=== PATIENT | male | born 1980 | race Caucasian/White ===

== ENCOUNTER 2016-06-10 10:56 | Emergency (ER) | payer OTHER ==
[~2016-06-10] VITALS: Ht 198.1 cm; Wt 102.0 kg
[~2016-06-10 10:56] MED LIST: LIDO5DIS35 TD; NAPR550 PO; Z.0.NO CURRENT MEDS
[2016-06-10 10:58] VITALS: BP 130/74; PULSE 96; RESP 12; TEMP 98; O2SAT 96
--- NOTE | 2016-06-10 11:39 | PD ---
HPI Chief Complaint: Back/ Neck Pain or Injury Time Seen by Provider: 11:38 Travel History International Travel<30 days: No Contact w/Intl Traveler<30days: No Traveled to known affect area: No History of Present Illness HPI 35-year-old male with a history of hypertension and chronic back pain presents to the emergency department for evaluation of back pain. Patient states that he had a fracture of his L3 and L4 vertebrae over 20 years ago that he had to have surgery to repair. States that since then he has had chronic back pain. States that yesterday at work he "tweaked" his back and has had spasms in his mid and lower back. States that he is prescribed Percocet by his pain management physician but that his pills have been stolen for the past 3 months at work and he has not been taking anything for his pain. He denies any new traumatic injury to his back. Denies any fever, chills, nausea, vomiting, numbness or tingling, weakness, saddle anesthesia, bowel or bladder incontinence. No other complaints. PFSH Past Medical History Hypertension: Yes Past Surgical History Tonsillectomy: Yes Other Surgery: Yes (BACK SURG L5 S1 DISKECTOMY) Social History Alcohol Use: Yes (occasional to rare use of alcohol) Tobacco Use: Yes (one pack per day) Substance Use: No Allergies-Medications (Allergen,Severity, Reaction): Coded Allergies: No Known Allergies (Verified , 06/10/16) Reported Meds & Prescriptions Reported Meds & Active Scripts Active Anaprox Ds (Naproxen Sodium) 550 Mg Tab 550 Mg PO BID Lidoderm Patch (Lidocaine) 5 % Dis 1 Patch TD DAILY Reported No Current Meds (Miscellaneous Medication) Misc Review of Systems Except as stated in HPI: all other systems reviewed are Neg Physical Exam Narrative GENERAL: Well-nourished and well-developed pleasant patient in no acute distress who is nontoxic appearing. SKIN: Warm and dry. HEAD: Normocephalic and atraumatic. EYES: No injection, drainage, or hyphema noted. PERRLA. EOMI. ENT: No nasal drainage noted. Oropharynx is clear. NECK: Supple and the trachea is midline. CARDIOVASCULAR: Regular rate and rhythm. RESPIRATORY: Breath sounds are equal bilaterally with no accessory muscle use, wheezing, rhonchi, or crackles. GASTROINTESTINAL: Abdomen is soft, non-tender, and nondistended. MUSCULOSKELETAL: No obvious deformities, swelling, cyanosis, or ecchymosis is present throughout the upper and lower extremities. Patient has full range of motion without any signs of neurovascular compromise. Bilateral SLR positive. Trach 5/5 upper and lower extremities equal bilaterally. BACK: Nontender without any obvious deformities, bony point tenderness, or crepitus noted throughout the thoracic and lumbar vertebrae. NEUROLOGICAL: Awake, alert, and oriented. Normal speech and gait. Cranial nerves are grossly intact. Data Data Last Documented VS Vital Signs Date Time Temp Pulse Resp B/P Pulse Ox O2 Delivery O2 Flow Rate FiO2 06/10/16 10:58 98.0 96 12 130/74 96 Room Air Orders Ketorolac Inj (Toradol Inj) (06/10/16 11:45) Orphenadrine Inj (Norflex Inj) (06/10/16 11:45) [facility] Medical Decision Making Medical Screen Exam Complete: Yes Emergency Medical Condition: Yes Differential Diagnosis Acute on chronic back pain versus muscle strain versus muscle spasm versus discogenic pain Narrative Course 35-year-old male presents to the emergency department for evaluation of back pain. Patient is afebrile, vital signs are stable. Patient has a history of chronic back pain and is prescribed Percocet by his pain management physician but is claiming that they have been stolen. I did look the patient up on [employer] prescription monitoring program which confirms he received a 30 day supply of oxycodone and [id number] milligrams tablets 05/28/16. THE patient Toradol 60 mg IM and Norflex 60 mg IM here in the emergency department. He can follow-up as an outpatient with his pain management physician. Diagnosis Primary Impression: Acute exacerbation of chronic low back pain Referrals: Primary Care Physician Patient Instructions: Back Pain (ED), General Instructions Additional Instructions: Follow-up with your Primary Care Physician. Return to the ED for any acute worsening of symptoms. Med/Other Pt SpecificInfo: No Change to Meds Disposition: 01 DISCHARGE HOME Condition: Stable Brittnee Sarkar Jun 10, 2016 11:39
[2016-06-10] MEDS ORDERED: ORPHENADRINE INJ 60 MG/2 ML AMP IM ONE (11:45)
[2016-06-10] MEDS ORDERED: KETOROLAC TROMETHAMINE 60 MG/2 ML (IM) VIAL IM ONE (11:45)
== END 2016-06-10 11:53 | disposition home or self-care (01) ==
LOC: NEPB 10:56
DX: M54.5 Low back pain (principal); G89.29 Other chronic pain; I10 Essential (primary) hypertension; M62.830 Muscle spasm of back; F17.210 Nicotine dependence, cigarettes, uncomplicated
CPT/HCPCS: 96372; 99283; J1885; J2360

== ENCOUNTER 2016-07-14 11:41 | Emergency (ER) | payer OTHER ==
[~2016-07-14] VITALS: Ht 198.1 cm; Wt 100.0 kg
[2016-07-14 11:43] VITALS: BP 132/81; PULSE 91; RESP 12; TEMP 98.1; O2SAT 95
== END 2016-07-14 15:30 | disposition left against medical advice (07) ==
LOC: NETRI 11:41
DX: R05 Cough (principal)
CPT/HCPCS: 99281

== ENCOUNTER 2017-01-27 10:12 | Emergency (ER) | payer OTHER ==
[~2017-01-27] VITALS: Ht 198.1 cm; Wt 100.0 kg
[2017-01-27] MEDS ORDERED: METH500T3 PO (10:17)
[2017-01-27] MEDS ORDERED: HYDR-3583 PO (10:17)
[2017-01-27 10:22] VITALS: BP 146/74; PULSE 80; RESP 21; O2SAT 98
[2017-01-27 10:25] VITALS: BP 154/84; PULSE 76; RESP 16; TEMP 98.6; O2SAT 99
--- NOTE | 2017-01-27 10:32 | PD ---
HPI Chief Complaint: Back/ Neck Pain or Injury Time Seen by Provider: 10:21 Travel History International Travel<30 days: No Contact w/Intl Traveler<30days: No Traveled to known affect area: No History of Present Illness HPI 36-year-old male presents to the emergency department with four-day history of right lower thoracic muscle spasm. 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 Patient denies fever, chills, chest pain, shortness of breath, or other symptoms. Patient tried [id number] medications and topical muscle rubs without improvement. Pain is 8 out of 10. Worse with movement or cough. He has no known drug allergies. PFSH Past Medical History Hypertension: Yes Musculoskeletal: Yes (CBP) Tetanus Vaccination: > 5 Years Influenza Vaccination: No Past Surgical History Tonsillectomy: Yes Other Surgery: Yes (BACK SURG L5 S1 DISKECTOMY) Social History Alcohol Use: Yes (" MUCH POSSIBLE") Tobacco Use: Yes (one pack per day) Substance Use: Yes (MARIJUANA) Allergies-Medications (Allergen,Severity, Reaction): Coded Allergies: No Known Allergies (Verified , 01/27/17) Reported Meds & Prescriptions Reported Meds & Active Scripts Active Reported Hydrocodone-Acetaminophen 10-325 mg Tab 1 Tab PO Q6H PRN Methocarbamol 500 Mg Tab 500 Mg PO TID Review of Systems Except as stated in HPI: all other systems reviewed are Neg General / Constitutional: No: Fever Eyes: No: Visual changes HENT: No: Headaches Cardiovascular: No: Chest Pain or Discomfort Respiratory: No: Shortness of Breath Gastrointestinal: No: Abdominal Pain Genitourinary: No: Dysuria Musculoskeletal: Positive: Myalgias, Limited ROM, Pain Skin: No Rash Neurologic: No: Weakness Psychiatric: No: Depression Endocrine: No: Polydipsia Hematologic/Lymphatic: No: Easy Bruising Physical Exam Narrative GENERAL: Patient appears in mild to moderate distress. Vital signs are stable. SKIN: Warm and dry. Normal color. Normal turgor. No rash. HEAD: Atraumatic. Normocephalic. EYES: Pupils equal and round. No scleral icterus. No injection or drainage. ENT: No nasal bleeding or discharge. Mucous membranes pink and moist. NECK: Trachea midline. Supple and nontender. CARDIOVASCULAR: Regular rate and rhythm. RESPIRATORY: No accessory muscle use. Clear to auscultation. Breath sounds equal bilaterally. MUSCULOSKELETAL: Extremities without clubbing, cyanosis, or edema. No obvious deformities. Patient has palpable muscle spasm on the right lower posterior thoracic wall. No point tenderness centrally. Range of motion somewhat limited secondary to pain. NEUROLOGICAL: Awake and alert. No obvious cranial nerve deficits. Motor grossly within normal limits. Five out of 5 muscle strength in the arms and legs. Normal speech. PSYCHIATRIC: Appropriate mood and affect; insight and judgment normal. MDM Medical Decision Making Medical Screen Exam Complete: Yes Emergency Medical Condition: Yes Differential Diagnosis Thoracic strain. Muscle spasm. Thoracic pain. Narrative Course Patient is medically stable at time of exam. Patient is given Toradol 60 mg IM as well as 60 mg prednisone by mouth. He is given a prescription for Norflex 100 mg twice a day #10. Patient is continued on prednisone 20 mg twice a day 5 days. Patient is given a prescription for extra strength Tylenol 2 tabs every 6 hours when necessary #60. Work note is given. Patient follow-up with local primary care or pain management or follow-up here if symptoms worsen. Diagnosis Primary Impression: Acute thoracic myofascial strain Qualified Codes: S29.019A - Strain of muscle and tendon of unspecified wall of thorax, initial encounter Referrals: [facility] Patient Instructions: General Instructions, Thoracic Back Strain (ED), Upper Back Exercises (GEN) Departure Forms: Work Release Enter return to work date: Jan 29, 2017 Additional Instructions: Patient is medically stable at time of exam. Patient is given Toradol 60 mg IM as well as 60 mg prednisone by mouth. He is given a prescription for Norflex 100 mg twice a day #10. Patient is continued on prednisone 20 mg twice a day 5 days. Patient is given a prescription for extra strength Tylenol 2 tabs every 6 hours when necessary #60. Work note is given. Patient follow-up with local primary care or pain management or follow-up here if symptoms worsen. Med/Other Pt SpecificInfo: Prescription(s) given Disposition: 01 DISCHARGE HOME Condition: Stable Keyon Patricio Jan 27, 2017 10:32
[2017-01-27] MEDS ORDERED: ORPH100T PO (10:37)
[2017-01-27] MEDS ORDERED: MAPA500T13 PO (10:37)
[2017-01-27] MEDS ORDERED: PRED20 PO (10:37)
[2017-01-27] MEDS ORDERED: KETOROLAC TROMETHAMINE 60 MG/2 ML (IM) VIAL IM ONE (10:45)
[2017-01-27] MEDS ORDERED: predniSONE 20 MG TAB PO ONE (10:45)
== END 2017-01-27 10:49 | disposition home or self-care (01) ==
LOC: NEPD 10:12
DX: S29.019A Strain of muscle and tendon of unspecified wall of thorax, initial encounter (principal); M79.1 Myalgia; I10 Essential (primary) hypertension; Z72.0 Tobacco use; X50.1XXA Overexertion from prolonged static or awkward postures, initial encounter
CPT/HCPCS: 96372; 99284; J1885; J7512

== ENCOUNTER 2017-10-16 20:33 | Emergency (ER) | payer OTHER ==
[~2017-10-16 20:33] MED LIST changes: +HYDR-3583 PO; -LIDO5DIS35 TD; +MAPA500T13 PO; +METH500T3 PO; -NAPR550 PO; +ORPH100T PO; +PRED20 PO; -Z.0.NO CURRENT MEDS
[2017-10-16 20:34] VITALS: BP 137/65; PULSE 84; RESP 18; TEMP 98.2; O2SAT 99
[2017-10-16] MEDS ORDERED: TETANUS/DIPHTHERIA TOXOID ADULT 0.5 ML VIAL IM ONE (20:45)
[2017-10-16] MEDS ORDERED: LIDOCAINE 2%/EPINEPHrine 1:100,000 30ML MDV INFIL ONE (20:45)
[2017-10-16] MEDS ORDERED: LIDOCAINE 2%/EPINEPHrine 1:100,000 50ML MDV ONE (20:51)
[2017-10-16] MEDS ORDERED: IBUP1TAB7 PO (21:26)
[2017-10-16] MEDS ORDERED: CEPH-460 PO (21:26)
--- NOTE | 2017-10-16 21:26 | PD ---
HPI Chief Complaint: Laceration/Skin Injury Time Seen by Provider: 20:39 Travel History International Travel<30 days: No Contact w/Intl Traveler<30days: No Traveled to known affect area: No History of Present Illness HPI Patient is a 37-year-old male presenting to emerge department for evaluation of a laceration to his left foot. Patient was walking in his yard when he stepped on a piece of metal. Patient reported his pain is a 7 out of 10, he states is throbbing. He is uncertain when his last tetanus vaccine was administered. He denies any significant past medical history. Patient symptom onset was sudden, symptoms are moderate in nature. Patient denies any weakness, numbness or loss of function his foot. PFSH Past Medical History Medical History: Denies Significant Hx Diminished Hearing: No Hypertension: Yes Immunizations Current: Yes Past Surgical History Tonsillectomy: Yes Other Surgery: Yes (BACK SURG L5 S1 DISKECTOMY, LAMINECTOMY) Social History Alcohol Use: Yes Tobacco Use: Yes (1.5 PPD) Substance Use: Yes (MARIJUANA) Allergies-Medications (Allergen,Severity, Reaction): Coded Allergies: tomato (Verified Allergy, Intermediate, 10/16/17) THROAT CLOSES - RAW ONLY Reported Meds & Prescriptions Reported Meds & Active Scripts Active Mapap Extra Strength (Acetaminophen) 500 Mg Tab 1,000 Mg PO Q4-6H PRN Orphenadrine ER 12 HR (Orphenadrine Citrate) 100 Mg Tab 100 Mg PO Q12HR Prednisone 20 Mg Tab 20 Mg PO BID 5 Days Reported Hydrocodone-Acetaminophen 10-325 mg Tab 1 Tab PO Q6H PRN Methocarbamol 500 Mg Tab 500 Mg PO TID Review of Systems Except as stated in HPI: all other systems reviewed are Neg Musculoskeletal: Positive: Pain Skin: Positive Other (Laceration) Physical Exam Narrative GENERAL: Well-developed, well-nourished, alert male. Presenting in no acute distress. SKIN: Warm and dry. 7 cm laceration to the plantar aspect of the left foot, initiates over the first MTP HEAD: Atraumatic. Normocephalic. EYES: Pupils equal and round. No scleral icterus. No injection or drainage. ENT: No nasal bleeding or discharge. Mucous membranes pink and moist. NECK: Trachea midline. No JVD. CARDIOVASCULAR: Regular rate and rhythm. RESPIRATORY: No accessory muscle use. Clear to auscultation. Breath sounds equal bilaterally. GASTROINTESTINAL: Abdomen soft, non-tender, nondistended. Hepatic and splenic margins not palpable. MUSCULOSKELETAL: Extremities without clubbing, cyanosis, or edema. No obvious deformities. NEUROLOGICAL: Awake and alert. No obvious cranial nerve deficits. Motor grossly within normal limits. Five out of 5 muscle strength in the arms and legs. Normal speech. PSYCHIATRIC: Appropriate mood and affect; insight and judgment normal. Data Data Last Documented VS Vital Signs Date Time Temp Pulse Resp B/P (MAP) Pulse Ox O2 Delivery O2 Flow Rate FiO2 10/16/17 20:34 98.2 84 18 137/65 (89) 99 Orders Orders Lidocai-Epi 2%-1:100,000 Inj (Xylocaine- (10/16/17 20:45) Tetanus/Diphtheria Tox Adult (Tetanus/Di (10/16/17 20:45) Lidocai-Epi 2%-1:100,000 Inj (Xylocaine- (10/16/17 20:51) MDM Medical Decision Making Medical Screen Exam Complete: Yes Emergency Medical Condition: Yes Interpretation(s) Vital Signs Date Time Temp Pulse Resp B/P (MAP) Pulse Ox O2 Delivery O2 Flow Rate FiO2 10/16/17 20:34 98.2 84 18 137/65 (89) 99 Differential Diagnosis Laceration versus abrasion versus retained foreign body versus tendon injury versus other Narrative Course Patient is a well-appearing 37-year-old male presenting for evaluation of a laceration to his left foot. Patient's tetanus vaccine was updated today. Please see procedure report for laceration repair. Patient was placed in a postop shoe. He was encouraged to keep this on when ambulating to prevent pulling stitches. He was advised to keep stitches clean and dry, covered with nonocclusive dressing. He was advised to return to emergency department or follow-up with his primary doctor to have stitches removed in 14 days. Patient was placed on Keflex prophylactically. Patient and verbalized understanding of instructions. Patient stable for discharge. Diagnosis Primary Impression: Laceration of foot Qualified Codes: S91.312A - Laceration without foreign body, left foot, initial encounter Referrals: [facility] [address] Primary Care Physician Patient Instructions: Care For Your Stitches (ED), General Instructions, Laceration (ED) Additional Instructions: Rest, ice, elevate extremity Use crutches and postop shoe to ambulate to avoid disrupting stitches Keep stitches clean and dry, cover with nonocclusive dressing Return to emergency department in 10-14 days to have stitches removed Follow-up with your primary doctor. Return to emergency department immediately for any new or worsening symptoms Med/Other Pt SpecificInfo: Prescription(s) given Scripts Ibuprofen (Ibuprofen) 800 Mg Tab 800 MG PO Q6HR Y for PAIN, #40 TAB 0 Refills Prov: Mary Nieves 10/16/17 Cephalexin (Keflex) 500 Mg Cap 500 MG PO Q12H for Infection for 7 Days, #14 CAP 0 Refills Prov: Mary Nieves 10/16/17 Disposition: 01 DISCHARGE HOME Condition: Stable Mary Nieves October 16, 2017 21:26
[2017-10-16] MEDS ORDERED: oxyCODONE/ACETAMINOPHEN 5 MG/325 MG TAB PO ONE (21:45)
== END 2017-10-16 21:55 | disposition home or self-care (01) ==
LOC: NEPD 20:33
DX: S91.312A Laceration without foreign body, left foot, initial encounter (principal); I10 Essential (primary) hypertension; W26.8XXA Contact with other sharp object(s), not elsewhere classified, initial encounter; Y93.01 Activity, walking, marching and hiking; Y92.007 Garden or yard of unspecified non-institutional (private) residence as the place of occurrence of the external cause; Z23 Encounter for immunization; Z72.0 Tobacco use
CPT/HCPCS: 12002; 90471; 90714; 99283; E0113; L3260

== ENCOUNTER 2017-11-02 11:13 | Emergency (ER) | payer OTHER ==
[~2017-11-02 11:13] MED LIST changes: +CEPH-460 PO; +IBUP1TAB7 PO; -MAPA500T13 PO; -METH500T3 PO; -ORPH100T PO; -PRED20 PO
[2017-11-02 11:20] VITALS: BP 124/70; PULSE 89; RESP 16; TEMP 97.8; O2SAT 97
[2017-11-02] MEDS ORDERED: CEPH-460 PO (11:49)
--- NOTE | 2017-11-02 11:49 | PD ---
HPI Chief Complaint: Skin Problem Time Seen by Provider: 11:26 Travel History International Travel<30 days: No Contact w/Intl Traveler<30days: No Traveled to known affect area: No History of Present Illness HPI Patient is a 37-year-old male presenting to the emergency department for reevaluation of a laceration to his left foot. Patient had stitches placed on after he cut his foot on a piece of metal in his yard. Patient was given a postop shoe and crutches which he states he could not use because of his job. He was advised to perform light duties but states he could not afford to. Patient has been using peroxide and alcohol to clean the wound. Patient states that a few of the stitches broke open. He denies any foul odor or drainage, no redness or warmth, no fever or chills. PFSH Past Medical History Diminished Hearing: No Hypertension: Yes Immunizations Current: Yes Past Surgical History Tonsillectomy: Yes Other Surgery: Yes (BACK SURG L5 S1 DISKECTOMY, LAMINECTOMY) Social History Alcohol Use: Yes Tobacco Use: Yes (1.5 PPD) Substance Use: Yes (MARIJUANA) Allergies-Medications (Allergen,Severity, Reaction): Coded Allergies: tomato (Verified Allergy, Intermediate, 10/16/17) THROAT CLOSES - RAW ONLY Reported Meds & Prescriptions Reported Meds & Active Scripts Active Ibuprofen 800 Mg Tab 800 Mg PO Q6HR PRN Keflex (Cephalexin) 500 Mg Cap 500 Mg PO Q12H 7 Days Reported Hydrocodone-Acetaminophen 10-325 mg Tab 1 Tab PO Q6H PRN Review of Systems Except as stated in HPI: all other systems reviewed are Neg Skin: Positive Other Physical Exam Narrative GENERAL: Well-developed, well-nourished, alert male. Presenting in no acute distress. SKIN: Warm and dry. 5 cm healing laceration to the plantar aspect of the left foot. Several stitches are missing, no erythema or induration noted, no foul odor drainage noted. No significant tenderness to palpation. HEAD: Normocephalic. EYES: No scleral icterus. No injection or drainage. NECK: Supple, trachea midline. No JVD or lymphadenopathy. CARDIOVASCULAR: Regular rate and rhythm without murmurs, gallops, or rubs. RESPIRATORY: Breath sounds equal bilaterally. No accessory muscle use. GASTROINTESTINAL: Abdomen soft, non-tender, nondistended. MUSCULOSKELETAL: No cyanosis, or edema 2+ dorsalis pedal pulses bilaterally. BACK: Nontender without obvious deformity. No CVA tenderness. Data Data Last Documented VS Vital Signs Date Time Temp Pulse Resp B/P (MAP) Pulse Ox O2 Delivery O2 Flow Rate FiO2 11/02/17 11:20 97.8 89 16 124/70 (88) 97 [facility] Medical Decision Making Medical Screen Exam Complete: Yes Emergency Medical Condition: Yes Interpretation(s) Vital Signs Date Time Temp Pulse Resp B/P (MAP) Pulse Ox O2 Delivery O2 Flow Rate FiO2 11/02/17 11:20 97.8 89 16 124/70 (88) 97 Differential Diagnosis Cellulitis versus normal healing versus wound dehiscence versus other Narrative Course Patient is a 37-year-old male presenting to the emergency department for evaluation of a laceration to his foot that had been previously repaired 2 weeks ago. Patient had been noncompliant with activity levels as well as postop shoe and crutches. Patient has been walking on his foot, he does not use the crutches or the postop shoe. Several stitches ruptured, there does not appear to be any sign of infection. Remaining stitches were removed without difficulty. Steri-Strips were placed as well as a clean dry dressing. Patient was advised to continue to use postop shoe for further wound healing without difficulty. He was strongly advised to stop using alcohol and peroxide on the wound. He was encouraged to keep the foot is clean and dry as possible, if he needed to wear his boots he was advised to change his socks and dressing several times a day so the foot stayed dry. He was advised to follow-up with her primary doctor or human factors specialist. He was given information regarding the [facility]. Patient will be given a prescription for Keflex at this time. He was advised to return to emergency department for any new or worsening symptoms. Patient stable for discharge. Diagnosis Primary Impression: Visit for suture removal Additional Impressions: Wound disruption Qualified Codes: T81.30XA - Disruption of wound, unspecified, initial encounter Broken suture Qualified Codes: T81.31XA - Disruption of external operation (surgical) wound , not elsewhere classified, initial encounter Referrals: [facility] Primary Care Physician Patient Instructions: Acute Wound Care (DC), General Instructions Additional Instructions: Use Steri-Strips as advised Keep foot clean and dry, do not use peroxide or alcohol, soap and water only to clean the wound Use postop shoe and crutches as previously advised Follow-up with a primary doctor or at the [facility] Return to emergency department for any new or worsening symptoms Med/Other Pt SpecificInfo: Prescription(s) given Scripts Cephalexin (Keflex) 500 Mg Cap 500 MG PO Q12H for Infection for 7 Days, #14 CAP 0 Refills Prov: Mary Nieves 11/02/17 Disposition: 01 DISCHARGE HOME Condition: Stable Mary Nieves Nov 02, 2017 11:49
== END 2017-11-02 12:02 | disposition home or self-care (01) ==
LOC: NEPD 11:13
DX: Z48.02 Encounter for removal of sutures (principal); T81.33XA Disruption of traumatic injury wound repair, initial encounter; S91.312D Laceration without foreign body, left foot, subsequent encounter; W45.8XXD Other foreign body or object entering through skin, subsequent encounter; I10 Essential (primary) hypertension; F17.200 Nicotine dependence, unspecified, uncomplicated; F12.90 Cannabis use, unspecified, uncomplicated; Z91.19 Patient's noncompliance with other medical treatment and regimen
CPT/HCPCS: 99281